=== PATIENT | male | born 1985 | race Caucasian/White ===

== ENCOUNTER → 2024-03-10 | Outpatient (CLI) | payer OTHER, SELFPAY ==
--- NOTE | 2024-03-10 11:04 | DI.MRI.S_ITS ---
PROCEDURE: MR CERVICAL SPINE WO/W CON INDICATIONS: LEFT HEMIPARESIS/EVAL FOR NERVE IMPINGEMENT TECHNIQUE: Noncontrast sagittal T1 spin echo and T2 fast spin echo, sagittal STIR, foraminal oblique sagittal T2 fast spin echo, axial gradient echo or T2 fast spin echo through the cervical spine. After the administration of contrast, axial and sagittal T1 spin echo with fat saturation through the cervical spine. COMPARISON: None. FINDINGS: Image quality: Excellent Alignment of the cervical spine is grossly anatomic. Vertebral body height of the cervical spine is well maintained. Mild fibrovascular end plate change at C6-7. No suspicious marrow replacing lesion. Multilevel disc bulge and minimal disc desiccation. Cord signal: Unremarkable Right neural foraminal stenosis: Mild at C6-7. Left neural foraminal stenosis: Mild at C6-7. Axial images: C2-3: No central canal stenosis. C3-4: Mild bilateral facet arthropathy. No central canal stenosis. C4-5: No central canal stenosis. C5-6: No central canal stenosis. C6-7: Mild bilateral facet arthropathy. Mild bilateral uncovertebral arthropathy. Mild disc bulge. No central canal stenosis. C7-T1: No central canal stenosis. Other soft tissue findings: Left dominant vertebral artery. No abnormal enhancement in the cervical spine. IMPRESSION: Minimal degenerative changes of cervical spine, most pronounced at C6-7, where there is mild bilateral neural foraminal stenosis. No central canal stenosis in the cervical spine. Dictated by: Jessica Lizarraga M.D. on 03/10/2024 at 12:21 Approved by: Jessica Lizarraga M.D. on 03/10/2024 at 12:30
== END ==
PROVIDERS: Referring Provider Internal Medicine; Visit Provider Internal Medicine
DX: J98.6 Disorders of diaphragm (principal); M48.02 Spinal stenosis, cervical region
CPT/HCPCS: 72156; A9579